=== PATIENT | female | born 1940 | race Hispanic/Latino ===

== ENCOUNTER 2019-07-30 12:23 | Outpatient (CLI) | payer MEDICARE, OTHER ==
[2019-07-30 13:05] LABS: Hematocrit 47.1 % (30.3-42.9); Hemoglobin 16.6 gm/dl (10.1-14.3); Mean Corpuscular HGB Conc 35 % (30-34); Mean Corpuscular Volume 93 fl (79-97); Platelet Count 235 K/mm3 (140-440); Red Blood Count 5.08 M/mm3 (3.65-5.03); Red Cell Distribution Width 13.6 % (13.2-15.2)
[2019-07-30 13:09] LABS: Bilirubin,Urine NEG (Negative); Blood,Urine NEG (Negative); Color,Urine Straw (Yellow); Protein,Urine <15 mg/dL mg/dL (Negative); Urobilinogen,Urine < 2.0 mg/dL (<2.0); WBC,Urine < 1.0 /HPF (0.0-6.0)
[2019-07-30 13:29] LABS: Alanine Aminotransferase 16 units/L (7-56); Albumin 4.6 g/dL (3.9-5); BUN/Creatinine Ratio 14; Blood Urea Nitrogen 11 mg/dL (7-17); Chol/HDL Ratio 2.78 %; HDL Cholesterol 78 mg/dL (40-59); Hemolysis Index 2; LDL Cholesterol,Direct 136 mg/dL (50-130)
[2019-08-02 15:35] LABS: Vitamin D, 25-OH, D2 <4 ng/mL
== END 2019-07-30 12:24 | disposition home or self-care (01) ==
LOC: CARD 12:23
PROVIDERS: ATTEND Internal Medicine
DX: Z13.1 Encounter for screening for diabetes mellitus (principal); N39.0 Urinary tract infection, site not specified; R53.83 Other fatigue; E55.9 Vitamin D deficiency, unspecified; R55 Syncope and collapse; R94.31 Abnormal electrocardiogram [ECG] [EKG]; R79.89 Other specified abnormal findings of blood chemistry
CPT/HCPCS: 36415; 80053; 80061; 81001; 82306; 83036; 84443; 85027; 93005; 93010